=== PATIENT | male | born 1960 | race Asian ===

== ENCOUNTER 2018-07-28 10:11 | Day surgery (SDC) | payer MEDICAID ==
[2018-07-26 12:02] LABS: BASOPHILS % (AUTO) 0.9 % (0.0-2.0); EOSINOPHILS % (AUTO) 0.4 % (1.0-6.0); HEMATOCRIT 47.5 % (41-53); HEMOGLOBIN 16.1 g/dL (13.5-17.5); LYMPHOCYTES # (AUTO) 1.8 K/uL (1.0-4.8); LYMPHOCYTES % (AUTO) 20.7 % (22.0-44.0); MEAN CORPUSCULAR HEMOGLOBIN 29.7 pg (26.0-34.0); MEAN CORPUSCULAR HGB CONC 33.8 G/dL (31.0-37.0); MEAN CORPUSCULAR VOLUME 88 fL (80-100); MONOCYTES # (AUTO) 0.6 K/uL (0.1-1.0); MONOCYTES % (AUTO) 6.9 % (2.0-9.0); NEUTROPHILS # (AUTO) 6.3 K/uL (1.8-7.7); NEUTROPHILS % (AUTO) 71.1 % (40.0-70.0); PLATELET COUNT (AUTO) 267 K/uL (150-450); RED BLOOD CELL COUNT(AUTO) 5.41 MIL/uL (4.50-5.90); RED CELL DISTRIBUTION WIDTH 13.3 % (11.5-14.5)
[2018-07-26 12:35] LABS: ANION GAP 7 mmol/L (8-16); CARBON DIOXIDE 31 mmol/L (22-29); CHLORIDE 99 mmol/L (98-107); CREATININE 1.22 mg/dL (0.60-1.30); GLOMERULAR FILTR. RATE CALC > 60 mL/min (>60); GLUCOSE,RANDOM 120 mg/dL (70-110); POTASSIUM 3.1 mmol/L (3.5-5.1); SODIUM SERUM 137 mmol/L (136-145); UREA NITROGEN, BLOOD 8 mg/dL (7-18)
[~2018-07-28] VITALS: Ht 167.6 cm; Wt 63.6 kg
[~2018-07-28 10:11] MED LIST: ACET-66 PO; ASPI-1182 PO; CeFAZolin 2 GM/DEXTROSE 50 ML IV ONE; LISI-661 PO; RINGERS SOLUTION,LACTATED 1,000 ML IV ONE
[2018-07-28] MEDS ORDERED: RINGERS SOLUTION,LACTATED 1,000 ML IV ONE (10:30)
[2018-07-28] MEDS ORDERED: CeFAZolin 2 GM/DEXTROSE 50 ML IV ONE (11:59)
[2018-07-28] MEDS ORDERED: PROPOFOL 1% 20 ML VIAL IVP ONE (12:00)
[2018-07-28] MEDS ORDERED: ONDANSETRON HCL 4 MG/2 ML VIAL IVP ONE (12:00)
[2018-07-28] MEDS ORDERED: LIDOCAINE/PF 2% 5 ML VIAL INJ ONE (12:00)
[2018-07-28] MEDS ORDERED: KETOROLAC TROMETHAMINE 60 MG/2 ML VIAL IM ONE (12:00)
[2018-07-28] MEDS ORDERED: FentaNYL CITRATE-PF 100 MCG/2 ML VIAL IVP ONE (12:00)
[2018-07-28] MEDS ORDERED: SUCCINYLCHOLINE CHLORIDE 20 MG/ML 10 ML VIAL IVP ONE (12:00)
[2018-07-28] MEDS ORDERED: ROCURONIUM BROMIDE 10 MG/ML 5 ML VIAL IVP ONE (12:00)
[2018-07-28] MEDS ORDERED: MIDAZOLAM HCL 2 MG/2 ML VIAL IVP ONE (12:00)
[2018-07-28] MEDS ORDERED: DEXAMETHASONE SOD PHOS 4 MG/ML VIAL IVP ONE (12:00)
[2018-07-28] MEDS ORDERED: GUM MASTIC/STORAX/MSAL/ALCOHOL LIQUID 0.67 ML VIAL TP ONE (12:43)
[2018-07-28] MEDS ORDERED: BUPIVACAINE HCL/PF 0.5% 30 ML VIAL ONE (12:43)
[2018-07-28] MEDS ORDERED: LIDOCAINE 2%/EPI 1:200,000/PF 20 ML VIAL ONE (12:43)
[2018-07-28] MEDS ORDERED: SUCCINYLCHOLINE CHLORIDE 20 MG/ML 10 ML VIAL ONE (13:00)
[2018-07-28] MEDS ORDERED: HYDROCODONE/ACETAMINOPHEN 5-325 MG TABLET PO PRN (14:30)
[2018-07-28] MEDS ORDERED: IBUPROFEN 800 MG TABLET PO PRN (14:30)
[2018-07-28] MEDS ORDERED: ACETAMINOPHEN 500 MG TABLET PO PRN (14:30)
[2018-07-28] MEDS ORDERED: HYDROCODONE/ACETAMINOPHEN 5-325 MG TABLET ONE (15:24)
== END 2018-07-28 16:40 | disposition home or self-care (01) ==
LOC: SURGERY 10:11
PROVIDERS: ATTEND Surgery
DX: K40.90 Unilateral inguinal hernia, without obstruction or gangrene, not specified as recurrent (principal); I10 Essential (primary) hypertension; Z86.19 Personal history of other infectious and parasitic diseases; Z79.82 Long term (current) use of aspirin; Z79.891 Long term (current) use of opiate analgesic; Z79.899 Other long term (current) drug therapy
CPT/HCPCS: 36415; 49650; 80048; 85025; 93005; C1781 ×2; J0330; J0690; J1100; J1885; J2250; J2405; J2704; J3010; J3490 ×3; J7120; 88302

== ENCOUNTER 2018-08-19 20:27 | Emergency (ER) | payer MEDICAID, OTHER ==
[~2018-08-19] VITALS: Ht 172.7 cm; Wt 61.4 kg
[~2018-08-19 20:27] MED LIST changes: -CeFAZolin 2 GM/DEXTROSE 50 ML IV ONE; -RINGERS SOLUTION,LACTATED 1,000 ML IV ONE
[2018-08-19 21:23] LABS: BASOPHILS % (AUTO) 0.8 % (0.0-2.0); EOSINOPHILS % (AUTO) 0.1 % (1.0-6.0); HEMATOCRIT 36.1 % (41-53); HEMOGLOBIN 12.6 g/dL (13.5-17.5); LYMPHOCYTES % (AUTO) 9.9 % (22.0-44.0); MEAN CORPUSCULAR HEMOGLOBIN 30.1 pg (26.0-34.0); MEAN CORPUSCULAR VOLUME 86 fL (80-100); MONOCYTES # (AUTO) 0.8 K/uL (0.1-1.0); MONOCYTES % (AUTO) 8.2 % (2.0-9.0); NEUTROPHILS # (AUTO) 8.2 K/uL (1.8-7.7); PLATELET COUNT (AUTO) 390 K/uL (150-450); RED CELL DISTRIBUTION WIDTH 13.2 % (11.5-14.5)
[2018-08-19 22:06] LABS: AMPHET/METH SCREEN,URINE NEGATIVE (NEGATIVE); BARBITURATE SCREEN, URINE NEGATIVE (NEGATIVE); BENZODIAZEPINES SCREEN,URINE NEGATIVE (NEGATIVE); CANNABINOID SCREEN,URINE NEGATIVE (NEGATIVE); COCAINE SCREEN,URINE NEGATIVE (NEGATIVE); METHADONE SCREEN, URINE NEGATIVE (NEGATIVE); OPIATE SCREEN,URINE NEGATIVE (NEGATIVE)
[2018-08-19 22:08] LABS: PHENCYCLIDINE SCREEN,URINE NEGATIVE (NEGATIVE)
[2018-08-19 22:09] LABS: ALANINE AMINOTRANSFERASE 67 U/L (12-78); ALBUMIN 3.8 g/dL (3.4-5.0); ALKALINE PHOSPHATASE 57 U/L (46-116); ANION GAP 9 mmol/L (8-16); ASPARTATE AMINOTRANSFERASE 32 U/L (15-37); BILIRUBIN,TOTAL 0.9 mg/dL (0.1-1.0); CALCIUM, TOTAL 9.2 mg/dL (8.8-10.5); CARBON DIOXIDE 31 mmol/L (22-29); CHLORIDE 90 mmol/L (98-107); CREATININE 1.47 mg/dL (0.60-1.30); GLOMERULAR FILTR. RATE CALC 49 mL/min (>60); GLUCOSE,RANDOM 183 mg/dL (70-110); SODIUM SERUM 130 mmol/L (136-145); TOTAL PROTEIN, SERUM 7.7 g/dL (6.4-8.2); UREA NITROGEN, BLOOD 15 mg/dL (7-18)
[2018-08-20 00:48] LABS: APPEARANCE,URINE TURBID (CLEAR); GLUCOSE, URINE (UA) NEGATIVE (NEGATIVE); KETONES,URINE 15 mg/dL (NEGATIVE); LEUKOCYTE ESTERASE ,URINE SMALL (NEGATIVE); NITRATE,URINE NEGATIVE (NEGATIVE); OCCULT BLOOD,URINE SMALL (NEGATIVE); PH,URINE 5.5 (5.0-8.0); PROTEIN,URINE TRACE (NEGATIVE)
[2018-08-20 00:52] LABS: BILIRUBIN,URINE PRELIM. POSITIVE (NEGATIVE)
[2018-08-20 01:15] LABS: BACTERIA,URINE Many /HPF (None Seen); WBC,URINE 51-100 /HPF (0-5)
[2018-08-20 01:16] LABS: CALCIUM OXALATE CRYSTALS,UR Moderate /LPF (None Seen); HYALINE CASTS, URINE 0-2 /LPF (None Seen); MUCUS,URINE Few LPF (None Seen); SQUAMOUS EPITHELIAL CELL,UR None Seen /LPF (None Seen)
[2018-08-20] MEDS: SODIUM CHLORIDE 0.9% 1,000 ML IV ONE ×2 (01:49→02:00)
[2018-08-20] MEDS: POTASSIUM CHLORIDE 20 MEQ ER TABLET PO ONE ×2 (01:49→02:00)
[2018-08-20 02:34] VITALS: BP 142/76
== END 2018-08-20 02:56 | disposition left against medical advice (07) ==
LOC: EMS 20:27
DX: F32.9 Major depressive disorder, single episode, unspecified (principal); E87.6 Hypokalemia; E87.1 Hypo-osmolality and hyponatremia; N39.0 Urinary tract infection, site not specified; I10 Essential (primary) hypertension
CPT/HCPCS: 36415; 70450; 71045; 74019; 80053; 80307; 81001; 84484; 85025; 87077; 87086; 87186; 93005; 99285; G0480; J7030

== ENCOUNTER 2019-07-02 08:01 | Emergency (ER) | payer OTHER ==
[~2019-07-02] VITALS: Ht 162.6 cm; Wt 63.6 kg
[~2019-07-02 08:01] MED LIST changes: -ACET-66 PO; -ASPI-1182 PO; +ASPI-556 PO
[2019-07-02 08:31] LABS: BILIRUBIN,URINE NEGATIVE (NEGATIVE); GLUCOSE, URINE (UA) NEGATIVE (NEGATIVE); KETONES,URINE NEGATIVE (NEGATIVE); LEUKOCYTE ESTERASE ,URINE MODERATE (NEGATIVE); NITRATE,URINE NEGATIVE (NEGATIVE); OCCULT BLOOD,URINE SMALL (NEGATIVE); PH,URINE 5.5 (5.0-8.0); PROTEIN,URINE NEGATIVE (NEGATIVE); UROBILINOGEN,URINE 0.2 mg/dL (<=1.0)
[2019-07-02 08:43] LABS: APPEARANCE,URINE HAZY (CLEAR)
[2019-07-02 08:44] LABS: BACTERIA,URINE None Seen /HPF (None Seen)
[2019-07-02 08:45] LABS: MUCUS,URINE Moderate LPF (None Seen)
[2019-07-02 09:10] VITALS: BP 137/81
== END 2019-07-02 09:23 | disposition home or self-care (01) ==
LOC: EMS 08:04
DX: N39.0 Urinary tract infection, site not specified (principal); I10 Essential (primary) hypertension; Z79.82 Long term (current) use of aspirin
CPT/HCPCS: 87086

== ENCOUNTER 2019-08-11 11:30 | Emergency (ER) | payer OTHER ==
[~2019-08-11] VITALS: Ht 167.6 cm; Wt 64.5 kg
[2019-08-11 11:33] VITALS: BP 142/89
[2019-08-11 12:59] LABS: APPEARANCE,URINE CLEAR (CLEAR); BILIRUBIN,URINE NEGATIVE (NEGATIVE); GLUCOSE, URINE (UA) NEGATIVE (NEGATIVE); KETONES,URINE NEGATIVE (NEGATIVE); LEUKOCYTE ESTERASE ,URINE NEGATIVE (NEGATIVE); NITRATE,URINE NEGATIVE (NEGATIVE); OCCULT BLOOD,URINE NEGATIVE (NEGATIVE); PH,URINE 6.5 (5.0-8.0); PROTEIN,URINE NEGATIVE (NEGATIVE); UROBILINOGEN,URINE 0.2 mg/dL (<=1.0)
== END 2019-08-11 13:45 | disposition home or self-care (01) ==
LOC: EMS 11:32
DX: R30.0 Dysuria (principal); I10 Essential (primary) hypertension; Z79.899 Other long term (current) drug therapy; Z98.890 Other specified postprocedural states

== ENCOUNTER 2020-06-28 16:59 | Emergency (ER) | payer OTHER ==
[~2020-06-28] VITALS: Ht 170.2 cm; Wt 77.3 kg
[2020-06-28] MEDS ORDERED: GABA-1216 PO (17:03)
[2020-06-28 20:32] LABS: APPEARANCE,URINE CLEAR (CLEAR); BILIRUBIN,URINE NEGATIVE (NEGATIVE); GLUCOSE, URINE (UA) NEGATIVE (NEGATIVE); KETONES,URINE NEGATIVE (NEGATIVE); LEUKOCYTE ESTERASE ,URINE NEGATIVE (NEGATIVE); NITRATE,URINE NEGATIVE (NEGATIVE); OCCULT BLOOD,URINE TRACE (NEGATIVE); PROTEIN,URINE NEGATIVE (NEGATIVE); UROBILINOGEN,URINE 0.2 mg/dL (<=1.0)
[2020-06-28 20:43] LABS: BACTERIA,URINE None Seen /HPF (None Seen); RBC,URINE 0-2 /HPF (0-2); SQUAMOUS EPITHELIAL CELL,UR Rare /LPF (None Seen); WBC,URINE None Seen /HPF (0-5)
[2020-06-28 21:02] VITALS: BP 148/80
== END 2020-06-28 21:03 | disposition home or self-care (01) ==
LOC: EMS 16:59
DX: R30.0 Dysuria (principal); R30.9 Painful micturition, unspecified

== ENCOUNTER 2020-07-19 18:41 | Emergency (ER) | payer OTHER ==
[~2020-07-19] VITALS: Ht 167.6 cm; Wt 63.6 kg
[~2020-07-19 18:41] MED LIST changes: +GABA-1216 PO
[2020-07-19 22:30] LABS: APPEARANCE,URINE CLEAR (CLEAR); BILIRUBIN,URINE NEGATIVE (NEGATIVE); GLUCOSE, URINE (UA) NEGATIVE (NEGATIVE); KETONES,URINE NEGATIVE (NEGATIVE); LEUKOCYTE ESTERASE ,URINE NEGATIVE (NEGATIVE); NITRATE,URINE NEGATIVE (NEGATIVE); OCCULT BLOOD,URINE TRACE (NEGATIVE); PROTEIN,URINE NEGATIVE (NEGATIVE); UROBILINOGEN,URINE 0.2 mg/dL (<=1.0)
[2020-07-19 22:48] LABS: BACTERIA,URINE None Seen /HPF (None Seen); RBC,URINE 0-2 /HPF (0-2); SQUAMOUS EPITHELIAL CELL,UR None Seen /LPF (None Seen); WBC,URINE None Seen /HPF (0-5)
[2020-07-19] MEDS ORDERED: PredniSONE 20 MG TABLET PO ONE (23:15)
[2020-07-19] MEDS ORDERED: DiphenhydrAMINE HCL 25 MG CAPSULE PO ONE (23:15)
[2020-07-20 02:12] VITALS: BP 140/80
== END 2020-07-20 02:14 | disposition home or self-care (01) ==
LOC: EMS 18:41
DX: L50.9 Urticaria, unspecified (principal); N50.812 Left testicular pain; R30.0 Dysuria; I10 Essential (primary) hypertension; Z79.82 Long term (current) use of aspirin; Z79.899 Other long term (current) drug therapy
CPT/HCPCS: 76870; 81001; 99284; J7512

== ENCOUNTER 2020-09-27 15:27 | Emergency (ER) | payer OTHER ==
[~2020-09-27] VITALS: Ht 177.8 cm; Wt 63.6 kg
[2020-09-27] MEDS ORDERED: TAMS-13 PO (15:39)
[2020-09-27 18:08] LABS: BASOPHILS % (AUTO) 0.7 % (0.0-2.0); EOSINOPHILS % (AUTO) 0.7 % (1.0-6.0); HEMATOCRIT 48.6 % (41-53); HEMOGLOBIN 16.8 g/dL (13.5-17.5); LYMPHOCYTES # (AUTO) 1.2 K/uL (1.0-4.8); LYMPHOCYTES % (AUTO) 13.7 % (22.0-44.0); MEAN CORPUSCULAR HEMOGLOBIN 30.7 pg (26.0-34.0); MEAN CORPUSCULAR HGB CONC 34.6 G/dL (31.0-37.0); MEAN CORPUSCULAR VOLUME 89 fL (80-100); MONOCYTES # (AUTO) 0.7 K/uL (0.1-1.0); MONOCYTES % (AUTO) 7.4 % (2.0-9.0); NEUTROPHILS # (AUTO) 7.1 K/uL (1.8-7.7); NEUTROPHILS % (AUTO) 77.5 % (40.0-70.0); PLATELET COUNT (AUTO) 245 K/uL (150-450); RED BLOOD CELL COUNT(AUTO) 5.49 MIL/uL (4.50-5.90); RED CELL DISTRIBUTION WIDTH 13.3 % (11.5-14.5)
[2020-09-27 18:19] LABS: CALCIUM, TOTAL 9.4 mg/dL (8.8-10.5); CREATININE 1.27 mg/dL (0.60-1.30); POTASSIUM 3.7 mmol/L (3.5-5.1)
[2020-09-27 18:24] LABS: ALBUMIN 4.1 g/dL (3.4-5.0); TOTAL PROTEIN, SERUM 7.8 g/dL (6.4-8.2)
[2020-09-27] MEDS ORDERED: MINERAL OIL 300 ML RECTAL PR ONE (18:30)
[2020-09-27] MEDS ORDERED: ASPI-1111 PO (18:34)
[2020-09-27] MEDS ORDERED: MINERAL OIL 133 ML ENEMA PR ONE (20:00)
[2020-09-27 20:39] VITALS: BP 124/74
== END 2020-09-27 20:52 | disposition home or self-care (01) ==
LOC: EMS 15:27
DX: K59.00 Constipation, unspecified (principal); K62.5 Hemorrhage of anus and rectum; I10 Essential (primary) hypertension; Z79.82 Long term (current) use of aspirin; Z79.899 Other long term (current) drug therapy
CPT/HCPCS: 82271